=== PATIENT | female | born 1945 | race Native Hawaiian/Other Pacific Islander ===

== ENCOUNTER 2016-08-03 11:44 | Outpatient (CLI) | payer OTHER ==
[2016-08-03 12:53] LABS: POTASSIUM 3.9 mmol/L (3.6-5.2)
[2016-08-03 12:59] LABS: PLATELET COUNT 309 K/uL (152-353)
== END 2016-08-03 23:04 | disposition home or self-care (01) ==
LOC: LABW 11:44
PROVIDERS: Nurse Practitioner
DX: D58.2 Other hemoglobinopathies (principal); Z12.31 Encounter for screening mammogram for malignant neoplasm of breast; E55.9 Vitamin D deficiency, unspecified; R73.09 Other abnormal glucose; R79.89 Other specified abnormal findings of blood chemistry; E78.00 Pure hypercholesterolemia, unspecified
CPT/HCPCS: 36415; 80053; 80061; 82306; 83036; 84443; 85027; G0202-TC

== ENCOUNTER 2016-08-31 19:01 | Emergency (ER) | payer OTHER ==
[~2016-08-31] VITALS: Ht 157.5 cm; Wt 65.8 kg
[2016-08-31 21:13] VITALS: BP 154/82; TEMP 98
== END 2016-08-31 21:13 | disposition home or self-care (01) ==
LOC: ED 19:01
DX: H61.21 Impacted cerumen, right ear (principal)
CPT/HCPCS: 99281

== ENCOUNTER 2017-02-17 17:21 | Emergency (ER) | payer OTHER ==
[~2017-02-17] VITALS: Ht 160 cm; Wt 66.7 kg
[2017-02-17 20:51] VITALS: BP 113/48; TEMP 98.1
== END 2017-02-17 20:51 | disposition home or self-care (01) ==
LOC: ED 17:21
DX: M79.604 Pain in right leg (principal)
CPT/HCPCS: 96372; 99282

== ENCOUNTER 2019-06-02 21:29 | Inpatient (IN) | payer OTHER ==
[~2019-06-02] VITALS: Ht 160 cm; Wt 62.3 kg
[2019-06-02 21:36] VITALS: BP 153/76; TEMP 98.2
[2019-06-02 22:43] VITALS: BP 153/76
[2019-06-02 22:45] LABS: PLATELET COUNT 210 K/uL (152-353)
[2019-06-02 22:49] LABS: POTASSIUM 3.7 mmol/L (3.6-5.2)
[2019-06-02 23:50] VITALS: BP 108/52; TEMP 98.3
[2019-06-03 00:44] VITALS: BP 130/79; TEMP 98.7; Ht 160 cm; Wt 62.3 kg
[2019-06-03] MEDS ORDERED: ALPR0.5T24 PO ×2 (03:10→03:12)
[2019-06-03] MEDS ORDERED: CITALOPRAM40 M1 PO (03:13)
[2019-06-03] MEDS ORDERED: SIMV20TA2 PO (03:14)
[2019-06-03] MEDS ORDERED: CELE100C2 PO (03:17)
[2019-06-03] MEDS ORDERED: MOBIC15 MG PO (03:17)
[2019-06-03] MEDS ORDERED: VALSARTAN320 MG PO (03:19)
[2019-06-03] MEDS ORDERED: HYDROCHLOROT12.5 M1 PO (03:21)
[2019-06-03] MEDS ORDERED: PANTOPRAZOLE 40MG TA PO (03:22)
[2019-06-03 04:00] VITALS: BP 111/54; TEMP 97.8
[2019-06-03 08:00] VITALS: BP 132/57; TEMP 97.5
[2019-06-03 12:00] VITALS: BP 131/55; TEMP 98
[2019-06-03 16:00] VITALS: BP 144/61; TEMP 97.6
[2019-06-03 20:00] VITALS: BP 142/49; TEMP 98.4
[2019-06-04] VITALS: BP 116/58; TEMP 97.8
[2019-06-04 04:00] VITALS: BP 121/47; TEMP 97.6
[2019-06-04 07:41] LABS: PLATELET COUNT 188 K/uL (152-353)
[2019-06-04 07:46] LABS: POTASSIUM 4.2 mmol/L (3.6-5.2)
[2019-06-04 08:00] VITALS: BP 139/65; TEMP 97.5
[2019-06-04 12:00] VITALS: BP 120/52; TEMP 97.6
[2019-06-04] MEDS ORDERED: HYDR10TA47A PO (15:51)
[2019-06-04 16:00] VITALS: BP 130/64; TEMP 98
[2019-06-04 19:57] VITALS: BP 134/66; TEMP 97.7
[2019-06-05] VITALS: BP 148/77; TEMP 97.8
[2019-06-05 04:00] VITALS: BP 144/77; TEMP 97.6
[2019-06-05 05:43] LABS: PLATELET COUNT 221 K/uL (152-353)
[2019-06-05 05:51] LABS: POTASSIUM 3.9 mmol/L (3.6-5.2)
[2019-06-05 08:00] VITALS: BP 163/74; TEMP 97.7
== END 2019-06-05 12:56 | disposition home or self-care (01) | DRG 191 ==
LOC: ED 21:29 → MED/SURG 23:25
PROVIDERS: Family Medicine; ADMIT Family Medicine
DX: J44.1 Chronic obstructive pulmonary disease with (acute) exacerbation (principal); N39.0 Urinary tract infection, site not specified; M48.56XA Collapsed vertebra, not elsewhere classified, lumbar region, initial encounter for fracture; I10 Essential (primary) hypertension; D72.828 Other elevated white blood cell count; E78.00 Pure hypercholesterolemia, unspecified; K21.9 Gastro-esophageal reflux disease without esophagitis; M15.8 Other polyosteoarthritis; F41.8 Other specified anxiety disorders; Z72.0 Tobacco use
CPT/HCPCS: 36415; 36600; 80053; 81000; 82805; 85027; 87015; 87045; 87070; 87205; 87324; 87328; 87329; 87449; 87502; 87651; 87899; 94640; 94664; 94760; 96374; 99284; J1100; J1650; J1885; J1956; J2920; J2930; J3410

== ENCOUNTER 2019-06-26 10:34 | Outpatient (CLI) | payer OTHER ==
[~2019-06-26 10:34] MED LIST: ALPR0.5T24 PO; CELE100C2 PO; CITALOPRAM40 M1 PO; HYDR10TA47A PO; HYDROCHLOROT12.5 M1 PO; MOBIC15 MG PO; PANTOPRAZOLE 40MG TA PO; SIMV20TA2 PO; VALSARTAN320 MG PO
== END 2019-06-26 22:34 | disposition home or self-care (01) ==
LOC: MRI 10:34
DX: R06.02 Shortness of breath (principal); M81.0 Age-related osteoporosis without current pathological fracture; Z12.31 Encounter for screening mammogram for malignant neoplasm of breast; M47.816 Spondylosis without myelopathy or radiculopathy, lumbar region

== ENCOUNTER 2019-08-08 08:19 | Day surgery (SDC) | payer OTHER ==
[~2019-08-08] VITALS: Ht 154.9 cm; Wt 57.6 kg
== END 2019-08-08 10:32 | disposition home or self-care (01) ==
LOC: OR 08:19
PROC: 3E0T3BZ Introduction of Anesthetic Agent into Peripheral Nerves and Plexi, Percutaneous Approach (ICD-10-PCS; principal; 2019-08-08)
PROC: 3E0T33Z Introduction of Anti-inflammatory into Peripheral Nerves and Plexi, Percutaneous Approach (ICD-10-PCS; 2019-08-08)
DX: M47.816 Spondylosis without myelopathy or radiculopathy, lumbar region (principal)
CPT/HCPCS: J1100; J2001

== ENCOUNTER 2019-08-29 09:38 | Day surgery (SDC) | payer OTHER | END 2019-08-29 13:30 | disposition home or self-care (01) | LOC: OR 09:38 | PROC: 3E0T3BZ Introduction of Anesthetic Agent into Peripheral Nerves and Plexi, Percutaneous Approach (ICD-10-PCS; principal; 2019-08-29) | PROC: 3E0T33Z Introduction of Anti-inflammatory into Peripheral Nerves and Plexi, Percutaneous Approach (ICD-10-PCS; 2019-08-29) | DX: M47.816 Spondylosis without myelopathy or radiculopathy, lumbar region (principal) | CPT/HCPCS: J1100; J2001 ==

== ENCOUNTER 2019-12-21 14:45 | Emergency (ER) | payer OTHER ==
[~2019-12-21] VITALS: Ht 160 cm; Wt 59.0 kg
[2019-12-21 15:38] LABS: PLATELET COUNT 234 K/uL (152-353)
[2019-12-21 15:41] LABS: POTASSIUM 4.7 mmol/L (3.6-5.2); SODIUM 138 mmol/L (136-145)
[2019-12-21 16:40] VITALS: BP 147/85; TEMP 98.1
== END 2019-12-21 16:48 | disposition home or self-care (01) ==
LOC: ED 14:45
DX: J44.1 Chronic obstructive pulmonary disease with (acute) exacerbation (principal); F17.210 Nicotine dependence, cigarettes, uncomplicated
CPT/HCPCS: 36600; 80053; 82805; 83880; 84484; 85027; 93005; 94664; 96374; 99284; J2930

== ENCOUNTER 2020-07-12 16:21 | Inpatient (IN) | payer OTHER ==
[~2020-07-12] VITALS: Ht 160 cm; Wt 61.8 kg
[2020-07-12 16:56] VITALS: BP 129/42; TEMP 98.3
[2020-07-12 18:08] LABS: PLATELET COUNT 227 K/uL (152-353)
[2020-07-12 18:21] LABS: POTASSIUM 3.2 mmol/L (3.6-5.2); SODIUM 134 mmol/L (136-145)
[2020-07-12 19:30] VITALS: BP 135/58; TEMP 98
[2020-07-12 20:00] VITALS: BP 112/46
[2020-07-12 20:30] VITALS: BP 103/47
[2020-07-12 21:00] VITALS: BP 99/43
[2020-07-12] MEDS ORDERED: XANAX XR1 MG PO (21:51)
[2020-07-12] MEDS ORDERED: MOBIC15 MG PO (21:52)
[2020-07-13 00:20] VITALS: BP 119/55; TEMP 98.8; Ht 160 cm; Wt 61.8 kg
[2020-07-13 04:00] VITALS: BP 101/52; TEMP 98.1
[2020-07-13 05:24] LABS: PLATELET COUNT 212 K/uL (152-353)
[2020-07-13 06:03] LABS: POTASSIUM 3.3 mmol/L (3.6-5.2)
[2020-07-13 08:00] VITALS: BP 98/49; TEMP 97.9
[2020-07-13 12:00] VITALS: BP 89/64; TEMP 97.8
[2020-07-13 16:00] VITALS: BP 121/47; TEMP 97
[2020-07-13 20:00] VITALS: BP 119/54; TEMP 97.8
[2020-07-14 00:18] VITALS: BP 121/49; TEMP 97.9
[2020-07-14 04:12] VITALS: BP 134/73; TEMP 97.8
[2020-07-14 04:52] LABS: PLATELET COUNT 235 K/uL (152-353)
[2020-07-14 05:01] LABS: POTASSIUM 4.4 mmol/L (3.6-5.2)
[2020-07-14 08:00] VITALS: BP 125/71; TEMP 97.9
[2020-07-14 12:00] VITALS: BP 147/58; TEMP 97.7
[2020-07-14 16:00] VITALS: BP 139/65; TEMP 96.6
[2020-07-14 20:19] VITALS: BP 154/72; TEMP 97.8
[2020-07-15] VITALS (7 sets, daily range): BP systolic 107–173; BP diastolic 64–83; TEMP 97.4–98.2
[2020-07-15 07:43] LABS: PLATELET COUNT 286 K/uL (152-353)
[2020-07-15 07:46] LABS: POTASSIUM 4.3 mmol/L (3.6-5.2)
[2020-07-16 04:21] VITALS: BP 170/73; TEMP 98
[2020-07-16 08:00] VITALS: BP 180/81; TEMP 97.5
[2020-07-16 08:09] LABS: PLATELET COUNT 296 K/uL (152-353)
[2020-07-16 08:23] LABS: POTASSIUM 4.4 mmol/L (3.6-5.2)
[2020-07-16 12:00] VITALS: BP 160/70; TEMP 97.8
[2020-07-16 15:58] VITALS: BP 149/80; TEMP 98
[2020-07-16 20:20] VITALS: BP 183/78; TEMP 98
[2020-07-17] VITALS (7 sets, daily range): BP systolic 132–174; BP diastolic 52–87; TEMP 97.8–98.7
[2020-07-17 05:20] LABS: PLATELET COUNT 334 K/uL (152-353); POTASSIUM 4.6 mmol/L (3.6-5.2)
[2020-07-18 04:16] VITALS: BP 154/70; TEMP 98.1
[2020-07-18 05:56] LABS: PLATELET COUNT 302 K/uL (152-353)
[2020-07-18 08:00] VITALS: BP 159/61; TEMP 98.1
[2020-07-18 12:00] VITALS: BP 129/63; TEMP 97.9
[2020-07-18 16:04] VITALS: BP 155/48; TEMP 98
== END 2020-07-18 17:20 | DRG 190 ==
LOC: ED 16:21 → MED/SURG 21:30
PROVIDERS: Internal Medicine Endocrinology, Diabetes & Metabolism; ADMIT Family Medicine; ATTEND Internal Medicine
DX: J44.0 Chronic obstructive pulmonary disease with (acute) lower respiratory infection (principal); J18.8 Other pneumonia, unspecified organism; J96.01 Acute respiratory failure with hypoxia; J44.1 Chronic obstructive pulmonary disease with (acute) exacerbation; Z72.0 Tobacco use; F41.8 Other specified anxiety disorders; I10 Essential (primary) hypertension; K21.9 Gastro-esophageal reflux disease without esophagitis; E87.6 Hypokalemia
CPT/HCPCS: 36415; 36600; 80048; 80053; 81000; 82728; 82805; 83605; 84484; 85007; 85027; 85379; 87040; 87086; 87088; 87635; 93005; 94664; 94760; 96365; 96366; 96367; 96372; 96375; 99284; J0696; J1100; J1650; J1956; J2920; J2930; J3490; U0003

== ENCOUNTER 2022-05-15 16:35 | Inpatient (IN) | payer OTHER ==
[~2022-05-15] VITALS: Ht 160 cm; Wt 67.3 kg
[2022-05-15] VITALS (8 sets, daily range): BP systolic 101–132; BP diastolic 34–56; TEMP 97.4–99.9; Ht 160 cm; Wt 67.3 kg
[~2022-05-15 16:35] MED LIST changes: +XANAX XR1 MG PO
[2022-05-15 17:01] LABS: PLATELET COUNT 236 K/uL (152-353)
[2022-05-15 17:05] LABS: POTASSIUM 3.2 mmol/L (3.6-5.2)
[2022-05-16 03:52] VITALS: BP 92/50; TEMP 97.8
[2022-05-16 05:27] LABS: POTASSIUM 3.5 mmol/L (3.6-5.2)
[2022-05-16 05:34] LABS: PLATELET COUNT 199 K/uL (152-353)
[2022-05-16 08:07] VITALS: BP 108/54; TEMP 97.6
[2022-05-16] MEDS ORDERED: DIOVAN HC2 PO (11:36)
[2022-05-16] MEDS ORDERED: HYDR10TA47 PO (11:37)
[2022-05-16] MEDS ORDERED: BUPROPION HYDR150 M2 PO (11:38)
[2022-05-16] MEDS ORDERED: DONE5TAB PO (11:39)
[2022-05-16] MEDS ORDERED: MEMA5TAB PO (11:39)
[2022-05-16] MEDS ORDERED: ASCO500T18 PO (11:40)
[2022-05-16] MEDS ORDERED: SIMV20TA2 PO (11:40)
[2022-05-16] MEDS ORDERED: CELEXA40 MG PO (11:41)
[2022-05-16] MEDS ORDERED: CITA20TA2 PO (11:41)
[2022-05-16] MEDS ORDERED: ALPR0.5T24 PO (11:42)
[2022-05-16] MEDS ORDERED: PANTOPRAZOLE 40MG TA PO (11:43)
[2022-05-16] MEDS ORDERED: MECLIZINE25 MG PO (11:43)
[2022-05-16] MEDS ORDERED: TRELEGY ELLIPTA1 AER INH (11:44)
[2022-05-16] MEDS ORDERED: VITAMIN D350000 UNI1 PO (11:44)
[2022-05-16 12:00] VITALS: BP 115/42; TEMP 98.6
[2022-05-16 16:21] VITALS: BP 98/41; TEMP 98.4
[2022-05-16 20:00] VITALS: BP 104/50; TEMP 98.3
[2022-05-17] VITALS (7 sets, daily range): BP systolic 103–153; BP diastolic 40–68; TEMP 97.6–98.7
[2022-05-18 03:52] VITALS: BP 141/75; TEMP 97.7
[2022-05-18 05:37] LABS: POTASSIUM 3.4 mmol/L (3.6-5.2)
[2022-05-18 05:49] LABS: PLATELET COUNT 232 K/uL (152-353)
[2022-05-18 08:00] VITALS: BP 161/70; TEMP 97.8
[2022-05-18 12:00] VITALS: BP 180/70; TEMP 97.2
[2022-05-18 16:00] VITALS: BP 127/101; TEMP 97.6
[2022-05-18 20:00] VITALS: BP 151/67; TEMP 97.9
[2022-05-19 00:05] VITALS: BP 148/79; TEMP 98.1
[2022-05-19 04:00] VITALS: BP 179/98; TEMP 98.2
[2022-05-19 08:00] VITALS: BP 137/65; TEMP 97.6
[2022-05-19 12:00] VITALS: BP 191/96; TEMP 98
[2022-05-19 12:00] LABS: PLATELET COUNT 317 K/uL (152-353)
[2022-05-19 12:04] LABS: POTASSIUM 3.7 mmol/L (3.6-5.2)
[2022-05-19 16:00] VITALS: BP 166/88; TEMP 97.6
== END 2022-05-19 17:28 | disposition short-term general hospital (02) | DRG 193 ==
LOC: ED 16:42 → MED/SURG 18:30
PROVIDERS: ADMIT Internal Medicine; ATTEND Internal Medicine
DX: J18.8 Other pneumonia, unspecified organism (principal); J96.21 Acute and chronic respiratory failure with hypoxia; J44.0 Chronic obstructive pulmonary disease with (acute) lower respiratory infection; J44.1 Chronic obstructive pulmonary disease with (acute) exacerbation; N17.8 Other acute kidney failure; I10 Essential (primary) hypertension; E88.09 Other disorders of plasma-protein metabolism, not elsewhere classified; E78.49 Other hyperlipidemia; K21.9 Gastro-esophageal reflux disease without esophagitis; M15.8 Other polyosteoarthritis
CPT/HCPCS: 36415; 36600; 80048; 80053; 81000; 82550; 82805; 83735; 84484; 85007; 85027; 87040; 87635; 93005; 94660; 94664; 94667; 94668; 94760; 96361; 96365; 96367; 96372; 96375; 96376; 99284; J0456; J0692; J1650; J1940; J2930; U0003

== ENCOUNTER 2022-12-19 12:24 | Inpatient (IN) | payer OTHER ==
[2022-12-19] VITALS (7 sets, daily range): BP systolic 119–166; BP diastolic 54–70; TEMP 98.4–99.7; Ht 157.5 cm; Wt 67.6 kg
[~2022-12-19] VITALS: Ht 157.5 cm; Wt 67.6 kg
[~2022-12-19 12:24] MED LIST changes: +ASCO500T18 PO; +BUPROPION HYDR150 M2 PO; +CELEXA40 MG PO; +CITA20TA2 PO; +DIOVAN HC2 PO; +DONE5TAB PO; +HYDR10TA47 PO; +MECLIZINE25 MG PO; +MEMA5TAB PO; +TRELEGY ELLIPTA1 AER INH; +VITAMIN D350000 UNI1 PO
[2022-12-19 13:00] LABS: PLATELET COUNT 283 K/uL (152-353)
[2022-12-19 13:05] LABS: POTASSIUM 3.6 mmol/L (3.6-5.2)
[2022-12-20 00:24] VITALS: BP 120/57; TEMP 98.4
[2022-12-20 04:24] VITALS: BP 113/45; TEMP 98.6
[2022-12-20 07:48] LABS: PLATELET COUNT 237 K/uL (152-353)
[2022-12-20 07:55] LABS: POTASSIUM 3.2 mmol/L (3.6-5.2)
[2022-12-20 08:44] VITALS: BP 100/54; TEMP 98.1
[2022-12-20 12:24] VITALS: BP 105/61; TEMP 98.9
[2022-12-20 16:47] VITALS: BP 137/57; TEMP 97.9
[2022-12-20 20:04] VITALS: BP 131/61; TEMP 98.8
[2022-12-21] VITALS (7 sets, daily range): BP systolic 111–156; BP diastolic 47–79; TEMP 97.8–98.7
[2022-12-21 07:00] LABS: POTASSIUM 3.3 mmol/L (3.6-5.2)
[2022-12-21 07:06] LABS: PLATELET COUNT 248 K/uL (152-353)
[2022-12-22 08:24] VITALS: BP 135/56; TEMP 97.8
[2022-12-22 09:09] LABS: PLATELET COUNT 304 K/uL (152-353)
[2022-12-22 09:14] LABS: POTASSIUM 3.8 mmol/L (3.6-5.2)
[2022-12-22 12:30] VITALS: BP 180/90; TEMP 98
[2022-12-22] MEDS ORDERED: PREDNISONE10 MG PO (13:20)
[2022-12-22] MEDS ORDERED: AZIT250T3 PO (13:21)
== END 2022-12-22 14:45 | disposition home or self-care (01) | DRG 192 ==
LOC: ED 12:24 → MED/SURG 16:28
PROVIDERS: Family Medicine; ADMIT Internal Medicine; ATTEND Internal Medicine
DX: J44.1 Chronic obstructive pulmonary disease with (acute) exacerbation (principal); R06.09 Other forms of dyspnea; R07.0 Pain in throat; K20.80 Other esophagitis without bleeding; I10 Essential (primary) hypertension; F41.8 Other specified anxiety disorders; K21.9 Gastro-esophageal reflux disease without esophagitis; I25.10 Atherosclerotic heart disease of native coronary artery without angina pectoris; I73.9 Peripheral vascular disease, unspecified; R19.7 Diarrhea, unspecified; E87.6 Hypokalemia; Z87.891 Personal history of nicotine dependence
CPT/HCPCS: 36600; 80048; 80053; 80307; 81000; 82550; 82805; 83605; 83630; 84100; 84484; 85007; 85027; 85610; 85730; 87015; 87040; 87045; 87324; 87328; 87329; 87449; 87502; 87635; 87651; 87899; 93005; 94664; 94760; 96361; 96365; 96366; 96375; 99284; J1956; J0696; J2543; J2920; J2930; J3370; U0003

== ENCOUNTER 2023-01-21 19:24 | Emergency (ER) | payer OTHER ==
[~2023-01-21] VITALS: Ht 160 cm; Wt 67.7 kg
[~2023-01-21 19:24] MED LIST changes: +AZIT250T3 PO; +PREDNISONE10 MG PO
[2023-01-21 19:35] VITALS: TEMP 98
[2023-01-21 21:32] VITALS: BP 124/62
== END 2023-01-21 21:35 | disposition home or self-care (01) ==
LOC: ED 19:24
DX: N64.4 Mastodynia (principal); J44.9 Chronic obstructive pulmonary disease, unspecified; I10 Essential (primary) hypertension; M19.90 Unspecified osteoarthritis, unspecified site; Z87.891 Personal history of nicotine dependence
CPT/HCPCS: 99283

== ENCOUNTER 2023-01-25 13:37 | Outpatient (CLI) | payer OTHER | END 2023-01-25 19:16 | disposition home or self-care (01) | LOC: MAMMO 13:37 | PROVIDERS: ATTEND Nurse Practitioner | DX: N64.4 Mastodynia (principal) | CPT/HCPCS: G0279 ==